=== PATIENT | male | born 1945 | race Caucasian/White ===

== ENCOUNTER → 2021-02-15 | Outpatient (CLI) | payer MEDICARE, OTHER ==
--- NOTE | 2021-02-15 12:40 | RAD ---
3 views left hand without comparison for pain in the distal third and fourth digits. TECHNIQUE AND FINDINGS: There is no fracture, dislocation, or acute osseous abnormality identified. T here is advanced arthritic change involving the first carpal metacarpal joint as well as second metac arpophalangeal and distal interphalangeal joints. Remaining joints and soft tissues are grossly unrem arkable. No erosions or juxta-articular osteopenia. Findings are likely due to osteoarthritis. IMPRESSION: 1. Degenerative changes involving the first carpal metacarpal, second metacarpal phalangeal, and seco nd distal interphalangeal joints. Electronically signed by: Ross العراقي MD (02/15/2021 12:38 PM) [id number]
== END ==
LOC: RAD 09:14
PROVIDERS: ATTEND Family Medicine
DX: S69.92XA Unspecified injury of left wrist, hand and finger(s), initial encounter (principal); M18.12 Unilateral primary osteoarthritis of first carpometacarpal joint, left hand; M19.042 Primary osteoarthritis, left hand; X58.XXXA Exposure to other specified factors, initial encounter; Y92.89 Other specified places as the place of occurrence of the external cause; Y93.89 Activity, other specified; Y99.8 Other external cause status
CPT/HCPCS: 73130